=== PATIENT | female | born 1995 | race Two or more races ===

== ENCOUNTER 2017-09-09 18:13 | Observation (INO) | payer MEDICAID ==
--- NOTE | 2017-09-09 18:43 | EDPHY ---
H & P Stated Complaint: slipped in tub at 0630/32 wks preg/ now with low back pain Time Seen by Provider: 09/09/17 18:42 HPI/ROS: CHIEF COMPLAINT: Low back pain following mechanical fall HISTORY OF PRESENT ILLNESS: The patient presents to the ED with low back pain following a mechanical fall earlier today. The patient is currently 32 weeks . She denies any vaginal bleeding, uterine contractions, significant abdominal pain, numbness or weakness. The patient contacted her sales manager [place] who referred her to the emergency department for clearance prior to going to Labor and delivery. REVIEW OF SYSTEMS: A comprehensive 10 point review of systems is otherwise negative aside from elements mentioned in the history of present illness. Source: Patient Exam Limitations: No limitations - Personal History LMP (Females 10-55): Current Tetanus/Diphtheria Vaccine: Yes Tetanus Vaccine Date: <10 years - Medical/Surgical History Hx Asthma: No Hx Chronic Respiratory Disease: No Hx Diabetes: No Hx Cardiac Disease: No Hx Renal Disease: No Hx Cirrhosis: No Hx Alcoholism: No Hx HIV/AIDS: No Hx Splenectomy or Spleen Trauma: No Other PMH: Tonsillectomy - Social History Smoking Status: Never smoked - Physical Exam Exam: General Appearance: Alert, no distress Head: Atraumatic Eyes: Pupils equal, round, reactive ENT, Mouth: No hemotympanum, no oral trauma Neck: Nontender, trachea midline Respiratory: No chest wall tender, no subcutaneous air, lungs clear bilaterally Cardiovascular: Regular rate and rhythm Abdomen: Gravid, nontender Skin: No lacerations, No abrasion Back: Tenderness noted in the lower paraspinal muscles without significant midline tenderness Extremities: Atraumatic Neurological: A&Ox3, normal motor function, normal sensory exam Constitutional: Initial Vital Signs Temperature (C) 36.9 C 09/09/17 18:22 Heart Rate 76 09/09/17 18:22 Respiratory Rate 18 09/09/17 18:22 Blood Pressure 122/82 H 09/09/17 18:22 O2 Sat (%) 97 09/09/17 18:22 O2 Delivery Mode Room Air Allergies/Adverse Reactions: No Known Allergies Allergy (Verified 09/09/17 18:21) Home Medications: Medication Instructions Recorded Keflex 09/09/17 09/09/17 Medical Decision Making ED Course/Re-evaluation: The patient has been medically cleared to be transferred to the labor and delivery unit. She has no evidence of a significant traumatic injury on exam. Her examination is consistent with a mild musculoskeletal strain/contusion. Departure - Departure Disposition: Home, Routine, Self-Care Clinical Impression: Low back sprain, Condition: Good Instructions: Low Back Strain (ED) Referrals: [facility],. [Primary Care Provider] - As per Instructions
[2017-09-09 19:12] VITALS: BP 130/76
== END 2017-09-09 21:50 | disposition home or self-care (01) ==
LOC: FLD 19:32
PROVIDERS: ADMIT Advanced Practice Midwife; ATTEND Advanced Practice Midwife
DX: O9A.213 Injury, poisoning and certain other consequences of external causes complicating pregnancy, third trimester (principal); W01.0XXA Fall on same level from slipping, tripping and stumbling without subsequent striking against object, initial encounter; Z3A.32 32 weeks gestation of pregnancy
CPT/HCPCS: 59025; 99285; G0378